=== PATIENT | male | born 1995 | race African-American/Black ===

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

== ENCOUNTER 2017-03-09 14:16 | Emergency (ER) | payer SELFPAY ==
[2017-03-09 14:23] VITALS: BP 140/83; BMI 20.7
== END 2017-03-09 15:38 | disposition home or self-care (01) ==
LOC: ER 14:22
DX: S41.011A Laceration without foreign body of right shoulder, initial encounter (principal); W45.8XXA Other foreign body or object entering through skin, initial encounter
CPT/HCPCS: 99281